=== PATIENT | male | born 1960 | race Caucasian/White ===

== ENCOUNTER → 2016-08-16 | Outpatient (CLI) | payer OTHER | END | disposition home or self-care (01) | LOC: CFH 14:18 | PROVIDERS: ATTEND Family Medicine | DX: R05 Cough (principal) | CPT/HCPCS: 71020 ==

== ENCOUNTER 2017-02-04 12:07 | Inpatient (IN) | payer OTHER ==
[~2017-02-04] VITALS: Ht 167.6 cm; Wt 106.7 kg
[2017-02-04] MEDS ORDERED: ALBUTEROL/IPRATROPIUM 2.5MG/0.5MG, 3 ML NPPB ONE (13:00)
[2017-02-04] MEDS ORDERED: ALBUTEROL/IPRATROPIUM 2.5MG/0.5MG, 3 ML ONE (13:31)
[2017-02-04] MEDS ORDERED: SODIUM CHLORIDE FLUSH 10ML SYR IVF ONE (14:30)
[2017-02-04] MEDS ORDERED: LEVOFLOXACIN/PMX 750MG/150ML 150 ML IVPB ONE (14:30)
[2017-02-04] MEDS ORDERED: methylPREDNISolone SOD SUCC 125 MG/2 ML IVP ONE (14:30)
[2017-02-04 14:49] LABS: HEMATOCRIT 46.5 % (39.2-51.8); HEMOGLOBIN 15.6 g/dL (13.7-18.0); WHITE BLOOD COUNT 7.3 x10^3/uL (3.4-10)
[2017-02-04 15:01] LABS: ASPARTATE AMINO TRANSFERASE 28 U/L (15-37); BLOOD UREA NITROGEN 13 mg/dL (7-18)
[2017-02-04 15:09] LABS: IS PT STATUS REG ER OR PRE ER? YES
[2017-02-04] MEDS ORDERED: LEVOFLOXACIN/PMX 750MG/150ML 150 ML ONE (15:14)
[2017-02-04] MEDS ORDERED: methylPREDNISolone SOD SUCC 125 MG/2 ML ONE (15:14)
[2017-02-04] MEDS ORDERED: POLYETHYLENE GLYCOL 17 GM PACKET PO PRN (16:00)
[2017-02-04] MEDS ORDERED: DOCUSATE 100 MG CAPSULE PO PRN (16:00)
[2017-02-04] MEDS ORDERED: ACETAMINOPHEN 325 MG TABLET PO PRN (16:00)
[2017-02-04] MEDS ORDERED: morphine SULFATE 10 MG/ML, 1ML IVPush PRN (16:00)
[2017-02-04] MEDS ORDERED: BISACODYL 10 MG SUPP PR PRN (16:00)
[2017-02-04] MEDS ORDERED: LABETALOL 5MG/ML, 20ML IVPush PRN (16:00)
[2017-02-04] MEDS ORDERED: HYDROcodone/APAP 5/325 TABLET PO PRN (16:00)
[2017-02-04] MEDS ORDERED: ONDANSETRON 2MG/ML, 2ML IVPush PRN (16:00)
[2017-02-04] MEDS: methylPREDNISolone SOD SUCC 125 MG/2 ML IVPush SCH ×2 (18:12→23:27)
[2017-02-04] MEDS: ENOXAPARIN 40 MG/0.4 ML SQ SCH (18:13)
[2017-02-04] MEDS ORDERED: METF500T4 PO (18:39)
[2017-02-04] MEDS ORDERED: CHOL200040 PO (18:39)
[2017-02-04] MEDS ORDERED: ATOR40TA78 PO (18:39)
[2017-02-04 19:51] VITALS: BP 152/82
[2017-02-04] MEDS: ATORVASTATIN 40 MG TABLET PO SCH (20:52)
[2017-02-04] MEDS: metFORMIN 500 MG TABLET PO SCH (20:52)
[2017-02-04] MEDS: SODIUM CHLORIDE FLUSH 10ML SYR IVF SCH (20:52)
[2017-02-05 03:58] VITALS: BP 145/84
[2017-02-05 06:15] LABS: BLOOD UREA NITROGEN 14 mg/dL (7-18)
[2017-02-05 08:00] VITALS: BP 159/89
[2017-02-05] MEDS: SODIUM CHLORIDE FLUSH 10ML SYR IVF SCH ×2 (09:00→20:56)
[2017-02-05 14:00] VITALS: BP 156/74
[2017-02-05] MEDS: ENOXAPARIN 40 MG/0.4 ML SQ SCH (18:24)
[2017-02-05 19:21] VITALS: BP 123/74
[2017-02-05] MEDS ORDERED: LABETALOL 5MG/ML, 20ML IVPush PRN (20:00)
[2017-02-05] MEDS ORDERED: DOCUSATE 100 MG CAPSULE PO PRN (20:00)
[2017-02-05] MEDS ORDERED: morphine SULFATE 10 MG/ML, 1ML IVPush PRN (20:00)
[2017-02-05] MEDS ORDERED: ACETAMINOPHEN 325 MG TABLET PO PRN (20:00)
[2017-02-05] MEDS ORDERED: HYDROcodone/APAP 5/325 TABLET PO PRN (20:00)
[2017-02-05] MEDS ORDERED: ONDANSETRON 2MG/ML, 2ML IVPush PRN (20:00)
[2017-02-05] MEDS ORDERED: BISACODYL 10 MG SUPP PR PRN (20:00)
[2017-02-05] MEDS ORDERED: POLYETHYLENE GLYCOL 17 GM PACKET PO PRN (20:00)
[2017-02-05] MEDS: metFORMIN 500 MG TABLET PO SCH (20:56)
[2017-02-05] MEDS: ATORVASTATIN 40 MG TABLET PO SCH (20:56)
[2017-02-06 01:54] VITALS: BP 136/74
[2017-02-06 07:02] VITALS: BP 147/89
[2017-02-06] MEDS: SODIUM CHLORIDE FLUSH 10ML SYR IVF SCH (08:08)
[2017-02-06] MEDS ORDERED: ALBU18HF IH (09:22)
[2017-02-06] MEDS ORDERED: PRED20TA PO (09:22)
== END 2017-02-06 13:57 | disposition home or self-care (01) | DRG 189 ==
LOC: ED 14:40 → EDIP 15:34 → 3NE 17:13
PROVIDERS: ADMIT Internal Medicine; ATTEND Internal Medicine
DX: J96.01 Acute respiratory failure with hypoxia (principal); E11.9 Type 2 diabetes mellitus without complications; J98.11 Atelectasis; E78.5 Hyperlipidemia, unspecified; I10 Essential (primary) hypertension; J40 Bronchitis, not specified as acute or chronic; J98.01 Acute bronchospasm; Z82.49 Family history of ischemic heart disease and other diseases of the circulatory system
CPT/HCPCS: 36415; 71020; 80048; 80053; 82962; 83880; 84484; 85025; 85379; 87040; 93005; 93306; 94640; 96361; 96374; 96375; J1650; J1956; J7620; J2930; J7512

== ENCOUNTER 2017-02-20 19:28 | Emergency (ER) | payer OTHER ==
[~2017-02-20] VITALS: Ht 167.6 cm; Wt 110.0 kg
[~2017-02-20 19:28] MED LIST: ALBU18HF IH; ATOR40TA78 PO; CHOL200040 PO; METF500T4 PO; PRED20TA PO
[2017-02-20 19:32] VITALS: BP 161/100
== END 2017-02-20 20:19 | disposition home or self-care (01) ==
LOC: ED 20:13
DX: T63.441A Toxic effect of venom of bees, accidental (unintentional), initial encounter (principal); E11.9 Type 2 diabetes mellitus without complications; I10 Essential (primary) hypertension; Y92.89 Other specified places as the place of occurrence of the external cause
CPT/HCPCS: 99282

== ENCOUNTER 2017-03-25 03:00 | Emergency (ER) | payer OTHER ==
[~2017-03-25] VITALS: Ht 167.6 cm; Wt 111.0 kg
[2017-03-25] MEDS ORDERED: CEFD300C37 PO (03:08)
[2017-03-25] MEDS ORDERED: SERT100T PO (03:08)
[2017-03-25 03:36] VITALS: BP 139/87
== END 2017-03-25 03:38 | disposition home or self-care (01) ==
LOC: ED 03:23
DX: J02.0 Streptococcal pharyngitis (principal); E11.9 Type 2 diabetes mellitus without complications; E78.5 Hyperlipidemia, unspecified; I10 Essential (primary) hypertension; Z98.890 Other specified postprocedural states
CPT/HCPCS: 99283

== ENCOUNTER → 2017-04-05 | Outpatient (CLI) | payer OTHER ==
[~2017-04-05] MED LIST changes: +CEFD300C37 PO; +SERT100T PO
== END | disposition home or self-care (01) ==
LOC: CFH 14:49
PROVIDERS: ATTEND Family Medicine
DX: R05 Cough (principal)
CPT/HCPCS: 71020

== ENCOUNTER → 2017-09-21 | Outpatient (CLI) | payer OTHER ==
[~2017-09-21] MED LIST changes: +OMNIPAQUE 350 MG/ML, 100ML BOTTLE ONE
== END | disposition home or self-care (01) ==
LOC: RAD 07:03
PROVIDERS: ATTEND Family Medicine
DX: K22.8 Other specified diseases of esophagus (principal); K76.0 Fatty (change of) liver, not elsewhere classified; E27.8 Other specified disorders of adrenal gland; E04.9 Nontoxic goiter, unspecified; E07.89 Other specified disorders of thyroid
CPT/HCPCS: 36415; 71260; 82565; Q9967